=== PATIENT | female | born 1950 | race Two or more races ===

== ENCOUNTER 2024-01-26 13:45 | Emergency (ER) | payer MEDICARE ==
[~2024-01-26] VITALS: Ht 167.6 cm; Wt 68.2 kg
[2024-01-26 13:49] VITALS: BP 161/88; PULSE 86; RESP 18; TEMP 97.9
[2024-01-26] MEDS: LIDOCAINE 1% 10 ML VIAL SQ ONE (14:41)
== END 2024-01-26 17:01 | disposition home or self-care (01) ==
LOC: EMS 14:30
DX: S61.411A Laceration without foreign body of right hand, initial encounter (principal); E78.00 Pure hypercholesterolemia, unspecified; I10 Essential (primary) hypertension; E03.9 Hypothyroidism, unspecified; Z85.9 Personal history of malignant neoplasm, unspecified; X58.XXXA Exposure to other specified factors, initial encounter; Y93.89 Activity, other specified; Y92.89 Other specified places as the place of occurrence of the external cause; Y99.8 Other external cause status
CPT/HCPCS: 99283; 73120; 12001; J3490